=== PATIENT | female | born 1965 | race Caucasian/White ===

== ENCOUNTER 2020-04-21 14:01 | Outpatient (RCR) | payer BC, SELFPAY ==
--- NOTE | 2020-04-21 15:09 | PTOPEVAL ---
Thank you for referring LLOYD MONREAL to [facility].? The patient is scheduled to be seen for therapy? ____x/week for ___ weeks. Please review, sign, date and return this plan of care ARJUN. I agree with and certify that the following plan of care is medically necessary. Referring Physician Date Admitting Provider: Attending Provider: PHYSICIAN NOT ON STAFF Referring Provider: *PT Outpatient Evaluation Start: 04/21/20 14:14 Freq: Status: Active Protocol: Document 04/21/20 14:10 [place] (Rec: 04/21/20 14:44 [place] [email or web address]) Therapy Assessment Status Assessment Status Assessment Status Evaluation Evaluation Information Problem Diagnosis impingement syndrome right shoulder Onset 02/14/20 Subjective Information Pt. reports that she fell down Query Text:As Reported By Patient/ steps on 02/13 and fell Family directly onto the right shoulder. Pt. reports that she had immediate shoulder pain and went to the ER the next morning. Pt. reports that her shoulder pain has gotten worse since the initial incident. She describes pain across the neck and into the right u.e. down to the elbow. She reports she has been on tramadol before her shoulder injury to address chronic back pain. she reports that her goal is to reduce her shoulder pain. Diagnostic Tests X-Rays For This Problem Yes Prior Level of Function Activity Level (Last 3 Months) Occupation [employer] Hand Dominance Left Activity of Daily Living Ability Independent Indoor/Home Mobility Independent Community Mobility Independent Stairs Ability Independent Functional Cognition (Planning, Shopping Independent , Taking Medications) Cooking Yes Cleaning Yes Laundry Yes Shopping Yes Driving Yes Pain Assessment Pain Scale Pain Scale Used Numeric (1 - 10) Self Report Pain Assessment Right Shoulder(s) Reported Pain Level 9 Pain Description Aching,Sharp Pain Radiation Right Arm Pain Score Pain Score 9: Self Report Cervical and Lumbar ROM Cervical ROM Cervical
== END 2020-05-14 23:59 | disposition home or self-care (01) ==
LOC: CHSPT 14:01
PROVIDERS: PCP Family Medicine
DX: M75.41 Impingement syndrome of right shoulder (principal)
CPT/HCPCS: 97014; 97110; 97140; 97161; G0283

== ENCOUNTER 2021-03-12 15:56 | Outpatient (RCR) | payer BC, SELFPAY ==
--- NOTE | 2021-03-12 17:10 | PTOPEVAL ---
Thank you for referring Carlota Cristina to [facility].? The patient is scheduled to be seen for therapy? ____x/week for ___ weeks. Please review, sign, date and return this plan of care ARJUN. I agree with and certify that the following plan of care is medically necessary. Referring Physician Date Admitting Provider: Attending Provider: CHAVA DUNN Referring Provider: MariePT Outpatient Evaluation Start: 03/12/21 15:27 Freq: Status: Active Protocol: Document 03/12/21 16:00 ACR (Rec: 03/12/21 17:09 ACR [email or web address]) Therapy Assessment Status Assessment Status Assessment Status Evaluation Evaluation Information Problem Diagnosis LBP Onset 03/03/21 Subjective Information Patient states that her back Query Text:As Reported By Patient/ pain began 2 years ago where Family she got shots and an ablasion which did not work. The patient underwent a surgery in her neck for a pinched nerve which did not relieve her pain either. She had a fall earlier this year which flared up her pain. She put in for disability at work due to the pain becoming unbearable. The patient states that she has radicular symptoms to her thigh on both sides. She states that her feet are starting to bother her as well where they fall asleep at random times. Patient states that any lifting, fitter's assistant, walking/standing for a prolonged period of time, stairs, and sitting are all difficult or uncomfortable. Patient's goal is to decrease the pain. 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
--- NOTE | 2021-04-09 11:58 | PTOPEVAL ---
Thank you for referring Carlota Cristina to [facility].? The patient is scheduled to be seen for therapy? ____x/week for ___ weeks. Please review, sign, date and return this plan of care ARJUN. I agree with and certify that the following plan of care is medically necessary. Referring Physician Date Admitting Provider: Attending Provider: CHAVA DUNN Referring Provider: JASON Outpatient Evaluation Start: 03/12/21 15:27 Freq: Status: Active Protocol: Document 04/09/21 10:58 ACR (Rec: 04/09/21 11:55 ACR [email or web address]) Therapy Assessment Status Assessment Status Assessment Status Discharge Evaluation Information Problem Diagnosis LBP Onset 03/03/21 Subjective Information Patient states that therapy Query Text:As Reported By Patient/ has helped her a little bit. Family Patient states that she still has difficulty with pretty much everything. and continues to have radicular symptoms down both legs. Pain Assessment Timing of Pain Assessment Timing of Pain Assessment Assessment Pain Scale Pain Scale Used Numeric (1 - 10) Self Report Pain Assessment Lower Back Reported Pain Level 3 Greatest Pain Intensity 5 Pain Score Pain Score 3: Self Report Interventions Used Interventions Used By Clinicians Activity or ADL's,Electrical Stimulation,Exercise,Heat Cervical and Lumbar ROM Lumbar ROM Lumbar ROM 75% of Normal Lower Extremity Muscle Strength Testing General Lower Extremity Strength Gross [facility] Extremity [facility] Hip Strength Bilateral Hip Flexion Strength 4 Good Knee Strength Bilateral Knee Flexion Strength 4+ Good + Knee Extension Strength 4+ Good + Muscle Length Testing Muscle Length Testing Piriformis w/Hip Flexion >90 Degrees (L) Mild Tightness,(R) Moderate Tightness Left Hamstring Length 10 Query Text:(90 - 90 Position) Right Hamstring Length 15 Query Text:(90 - 90 Position) Gait Assessment Gait Assessment Additional Ambulation Comments Patient ambulates into the clinic with improved heel strike and nedra, but continues to have decreased trunk rotation. General Exercise General Exercises Exercise Description - reeval x 5 minutes Query Text:Record Sets, Reps, - HS stretch x 5 minutes Resistance, and Position bilateral - piriformis stretch x 5 minutes bilat
== END 2021-04-09 13:26 | disposition home or self-care (01) ==
LOC: CHSPT 15:56
DX: M47.816 Spondylosis without myelopathy or radiculopathy, lumbar region (principal)
CPT/HCPCS: 97014; 97110; 97140; 97161; G0283